=== PATIENT | male | born 1960 | race African-American/Black ===

== ENCOUNTER 2017-05-16 08:26 | Emergency (ER) | payer OTHER ==
[~2017-05-16] VITALS: Ht 188 cm; Wt 95.2 kg
[2017-05-16] MEDS ORDERED: NAPROSYN500 MG PO (09:00)
[2017-10-11] MEDS ORDERED: PERCOCET 5-3251 EACH PO (12:55)
[2017-10-11] MEDS ORDERED: CIPRO500 MG PO (12:56)
== END 2017-05-16 09:39 | disposition home or self-care (01) ==
LOC: ED 08:26
DX: F17.200 Nicotine dependence, unspecified, uncomplicated (principal)
CPT/HCPCS: 29130; 73130; 99283

== ENCOUNTER 2017-10-05 12:42 | Emergency (ER) | payer OTHER ==
[~2017-10-05] VITALS: Ht 188 cm; Wt 95.2 kg
[~2017-10-05 12:42] MED LIST: NAPROSYN500 MG PO
[2017-10-05] MEDS ORDERED: NORCO 5-325 TA1 EACH PO (17:41)
[2017-10-05] MEDS ORDERED: FLOMAX0.4 MG PO (17:41)
[2017-10-11] MEDS ORDERED: PERCOCET 5-3251 EACH PO (12:55)
[2017-10-11] MEDS ORDERED: CIPRO500 MG PO (12:56)
== END 2017-10-05 17:56 | disposition home or self-care (01) ==
LOC: ED 12:42
PROC: BT40ZZZ Ultrasonography of Bladder (ICD-10-PCS; principal; 2017-10-05)
DX: N20.1 Calculus of ureter (principal); E86.0 Dehydration; F17.200 Nicotine dependence, unspecified, uncomplicated
CPT/HCPCS: 51798; 74176; 80053; 81001; 82565; 83690; 83874; 84520; 85025; 96361; 96374; 96375; 99284; J2405; J3010; J7030

== ENCOUNTER 2018-07-22 13:33 | Emergency (ER) | payer OTHER ==
[~2018-07-22] VITALS: Ht 188 cm; Wt 113.4 kg
[~2018-07-22 13:33] MED LIST changes: +CIPRO500 MG PO; +CYCLOBENZAPRINE5 MG PO; +FLOMAX0.4 MG PO; +NORCO 5-325 TA1 EACH PO; +PERCOCET 5-3251 EACH PO
--- OUTSIDE RECORDS SUMMARY | 2018-07-22 13:36 | XMS ---
PreManage Notification: LAINA FRIED Security Pediatric Clinical Nurse Specialist Events No recent Security Events currently on file CRITERIA MET - [facility] CARE PROVIDERS There are no care providers on record at this time. Kevin has no Care Guidelines for this patient. Patsy VISIT COUNT (12 MO.) 3 TRACY Márquez TOTAL 3 NOTE: Visits indicate total known visits. ED/C VISIT TRACKING (12 MO.) 07/22/2018 13:33 [facility] [place] TYPE: Emergency COMPLAINT: - FALL/BACK PAIN 02/23/2018 12:18 [facility] [place] TYPE: Emergency COMPLAINT: - FLANK PAIN DIAGNOSES: - Exposure to other specified factors, initial encounter - Unspecified abdominal pain - Strain of muscle and tendon of back wall of thorax, initial encounter - Nicotine dependence, unspecified, uncomplicated 10/05/2017 12:43 [facility] [place] TYPE: Emergency COMPLAINT: - ABD PAIN/BACK PAIN DIAGNOSES: - Nicotine dependence, unspecified, uncomplicated - Lower abdominal pain, unspecified - Dehydration - Calculus of ureter INPATIENT VISIT TRACKING (12 MO.) No inpatient visits to display in this time frame [id number]
[2018-07-22] MEDS ORDERED: BACLOFEN10 MG PO (14:11)
[2018-07-22] MEDS ORDERED: BACTRIM DS TAB1 EACH PO (14:11)
[2018-07-22] MEDS ORDERED: METHYLPREDNISOLO4 M1 PO (14:11)
[2018-07-22] MEDS ORDERED: NORCO 5-325 TA1 EACH PO (14:11)
== END 2018-07-22 14:47 | disposition home or self-care (01) ==
LOC: ED 13:33
DX: S39.012A Strain of muscle, fascia and tendon of lower back, initial encounter (principal); L02.415 Cutaneous abscess of right lower limb; F17.200 Nicotine dependence, unspecified, uncomplicated; Z87.442 Personal history of urinary calculi; W00.0XXA Fall on same level due to ice and snow, initial encounter
CPT/HCPCS: 96372; 99283-25; J1885

== ENCOUNTER 2019-01-19 07:08 | Emergency (ER) | payer OTHER ==
[~2019-01-19] VITALS: Ht 188 cm; Wt 113.4 kg
[~2019-01-19 07:08] MED LIST changes: +BACLOFEN10 MG PO; +BACTRIM DS TAB1 EACH PO; +METHYLPREDNISOLO4 M1 PO
--- OUTSIDE RECORDS SUMMARY | 2019-01-19 07:12 | XMS ---
PreManage Notification: LAINA FRIED Security Online Merchandising Manager Events No recent Security Events currently on file CRITERIA MET - [employer] CARE PROVIDERS REINA STEELE Physician Glaciologist 07/25/2018-Current PHONE: [phone] Kevin has no Care Guidelines for this patient. EPaul VISIT COUNT (12 MO.) 3 TRACY Márquez TOTAL 3 NOTE: Visits indicate total known visits. ED/UCC VISIT TRACKING (12 MO.) 01/19/2019 07:09 [facility] TYPE: Emergency COMPLAINT: - BACK PAIN 07/22/2018 13:33 [facility] [place] TYPE: Emergency COMPLAINT: - FALL/BACK PAIN DIAGNOSES: - Fall on same level due to ice and snow, initial encounter - Low back pain - Cutaneous abscess of right lower limb - Nicotine dependence, unspecified, uncomplicated - Strain of muscle, fascia and tendon of lower back, initial encounter - Personal history of urinary calculi 02/23/2018 12:18 [facility] [place] TYPE: Emergency COMPLAINT: - FLANK PAIN DIAGNOSES: - Exposure to other specified factors, initial encounter - Unspecified abdominal pain - Strain of muscle and tendon of back wall of thorax, initial encounter - Nicotine dependence, unspecified, uncomplicated INPATIENT VISIT TRACKING (12 MO.) No inpatient visits to display in this time frame [id number]
[2019-01-19] MEDS ORDERED: CYCLOBENZAPRINE10 MG PO (07:54)
[2019-01-19] MEDS ORDERED: INDOMETHACIN50 MG PO (07:54)
[2019-01-19] MEDS ORDERED: AMOXICILLIN500 MG PO (07:54)
[2019-01-19] MEDS ORDERED: NICOTINE PATCH1 EACH TD (08:13)
== END 2019-01-19 08:19 | disposition home or self-care (01) ==
LOC: ED 07:08
DX: M54.5 Low back pain (principal); K08.89 Other specified disorders of teeth and supporting structures; F17.200 Nicotine dependence, unspecified, uncomplicated; Z87.442 Personal history of urinary calculi
CPT/HCPCS: 99283; 99406

== ENCOUNTER 2019-03-09 17:43 | Emergency (ER) | payer OTHER ==
[~2019-03-09] VITALS: Ht 188 cm; Wt 113.4 kg
[~2019-03-09 17:43] MED LIST changes: +AMOXICILLIN500 MG PO; +CYCLOBENZAPRINE10 MG PO; +INDOMETHACIN50 MG PO; +NICOTINE PATCH1 EACH TD
--- OUTSIDE RECORDS SUMMARY | 2019-03-09 17:46 | XMS ---
PreManage Notification: LAINA FRIED Security Clay Caster Events No recent Security Events currently on file CRITERIA MET - [employer] CARE PROVIDERS REINA STEELE Physician Cryogenics Repairer 07/25/2018-Current PHONE: [phone] Kevin has no Care Guidelines for this patient. EPaul VISIT COUNT (12 MO.) 3 TRACY Márquez TOTAL 3 NOTE: Visits indicate total known visits. ED/UCC VISIT TRACKING (12 MO.) 03/09/2019 17:44 [facility] [place] TYPE: Emergency COMPLAINT: - BACK PAIN, NOSE BLEED 01/19/2019 07:09 [facility] [place] TYPE: Emergency COMPLAINT: - BACK PAIN DIAGNOSES: - Other specified disorders of teeth and supporting structures - Dorsalgia, unspecified - Low back pain - Personal history of urinary calculi - Nicotine dependence, unspecified, uncomplicated 07/22/2018 13:33 [facility] [place] TYPE: Emergency COMPLAINT: - FALL/BACK PAIN DIAGNOSES: - Fall on same level due to ice and snow, initial encounter - Low back pain - Cutaneous abscess of right lower limb - Nicotine dependence, unspecified, uncomplicated - Strain of muscle, fascia and tendon of lower back, init - Personal history of urinary calculi INPATIENT VISIT TRACKING (12 MO.) No inpatient visits to display in this time frame [id number]
[2019-03-09] MEDS ORDERED: DOXYCYCLINE HY100 MG PO (19:11)
[2019-03-09] MEDS ORDERED: CYCLOBENZAPRINE10 MG PO (19:11)
[2019-03-09] MEDS ORDERED: DICLOFENAC SODI75 MG PO (19:11)
[2019-03-09] MEDS ORDERED: OMEPRAZOLE20 MG PO (19:32)
== END 2019-03-09 19:35 | disposition home or self-care (01) ==
LOC: ED 17:43
DX: M54.5 Low back pain (principal); F17.200 Nicotine dependence, unspecified, uncomplicated
CPT/HCPCS: 99283

== ENCOUNTER 2019-06-26 07:46 | Emergency (ER) | payer OTHER ==
[~2019-06-26] VITALS: Ht 188 cm; Wt 99.8 kg
[~2019-06-26 07:46] MED LIST changes: +DICLOFENAC SODI75 MG PO; +DOXYCYCLINE HY100 MG PO; +OMEPRAZOLE20 MG PO
[2019-06-26] MEDS ORDERED: SUDAFED 12-HOU120 MG PO (08:24)
[2019-06-26] MEDS ORDERED: NORCO 5-325 TA1 EACH PO (08:24)
[2019-06-26] MEDS ORDERED: KEFLEX500 MG PO (08:24)
[2019-06-26] MEDS ORDERED: TESSALON PERLE100 MG PO (08:24)
== END 2019-06-26 08:38 | disposition home or self-care (01) ==
LOC: ED 07:46
DX: M54.5 Low back pain (principal); J06.9 Acute upper respiratory infection, unspecified; L73.9 Follicular disorder, unspecified; Z87.891 Personal history of nicotine dependence
CPT/HCPCS: 99283

== ENCOUNTER 2020-03-11 08:48 | Emergency (ER) | payer OTHER ==
[~2020-03-11] VITALS: Ht 188 cm; Wt 99.8 kg
[~2020-03-11 08:48] MED LIST changes: +KEFLEX500 MG PO; +SUDAFED 12-HOU120 MG PO; +TESSALON PERLE100 MG PO
== END 2020-03-11 10:16 | disposition home or self-care (01) ==
LOC: ED 08:48
DX: S39.012A Strain of muscle, fascia and tendon of lower back, initial encounter (principal); L84 Corns and callosities; X58.XXXA Exposure to other specified factors, initial encounter; F17.200 Nicotine dependence, unspecified, uncomplicated
CPT/HCPCS: 72100; 81001; 96372; 99283-25; J1885

== ENCOUNTER 2020-07-29 11:02 | Emergency (ER) | payer OTHER ==
[~2020-07-29] VITALS: Ht 188 cm; Wt 95.3 kg
[2020-07-29] MEDS ORDERED: PREDNISONE20 MG PO (12:43)
[2020-07-29] MEDS ORDERED: CYCLOBENZAPRINE10 MG PO (12:43)
== END 2020-07-29 12:56 | disposition home or self-care (01) ==
LOC: ED 11:02
DX: G89.29 Other chronic pain (principal); M54.5 Low back pain; L73.9 Follicular disorder, unspecified; B48.8 Other specified mycoses; F17.200 Nicotine dependence, unspecified, uncomplicated
CPT/HCPCS: 99283

== ENCOUNTER 2020-12-15 09:39 | Emergency (ER) | payer OTHER ==
[~2020-12-15] VITALS: Ht 188 cm; Wt 95.2 kg
[~2020-12-15 09:39] MED LIST changes: +PREDNISONE20 MG PO
[2020-12-15] MEDS ORDERED: METHOCARBAMOL500 MG PO (10:41)
[2020-12-15] MEDS ORDERED: PREDNISONE20 MG PO (10:41)
== END 2020-12-15 11:15 | disposition home or self-care (01) ==
LOC: ED 09:39
DX: M54.5 Low back pain (principal); G89.29 Other chronic pain; F17.200 Nicotine dependence, unspecified, uncomplicated
CPT/HCPCS: 99283; A9270; J7512

== ENCOUNTER 2021-01-06 23:36 | Emergency (ER) | payer OTHER ==
[~2021-01-06] VITALS: Ht 188 cm; Wt 95.2 kg
[~2021-01-06 23:36] MED LIST changes: +METHOCARBAMOL500 MG PO
--- OUTSIDE RECORDS SUMMARY | 2021-01-06 23:44 | XMS ---
PreManage Notification: LAINA FRIED Security Digital Strategist Senior Manager Events No recent Security Events currently on file CRITERIA MET - [facility] - 2 Visits in 30 Days CARE PROVIDERS REINA STEELE Physician Gerontology Aide 07/25/2018-Current PHONE: [phone] Kevin has no Care Guidelines for this patient. Patsy VISIT COUNT (12 MO.) 4 [facility] TOTAL 4 NOTE: Visits indicate total known visits. ED/C VISIT TRACKING (12 MO.) 01/06/2021 23:37 [facility] [place] TYPE: Emergency COMPLAINT: - DIZZINESS,BODY CHILLS 12/15/2020 09:39 [facility] [place] TYPE: Emergency COMPLAINT: - LOWER BACK PAIN DIAGNOSES: - Other chronic pain - Low back pain - Nicotine dependence, unspecified, uncomplicated 07/29/2020 11:03 [facility] [place] TYPE: Emergency COMPLAINT: - BACK PAIN, RIGHT FOOT PAIN DIAGNOSES: - Other specified mycoses - Low back pain - Other chronic pain - Nicotine dependence, unspecified, uncomplicated - Follicular disorder, unspecified 03/11/2020 08:[address] [facility] [place] TYPE: Emergency COMPLAINT: - BACK PAIN NON INJ, WOUND ON RIGHT FOOT DIAGNOSES: - Corns and callosities - Strain of muscle, fascia and tendon of lower back, initial encounter - Pain in right toe(s) - Exposure to other specified factors, initial encounter - Nicotine dependence, unspecified, uncomplicated INPATIENT VISIT TRACKING (12 MO.) No inpatient visits to display in this time frame [id number]
[2021-01-07] MEDS ORDERED: PROTONIX40 MG PO (01:15)
[2021-01-07] MEDS ORDERED: AUGMENTIN 875-1 EACH PO (01:15)
== END 2021-01-07 01:29 | disposition home or self-care (01) ==
LOC: ED 23:36
DX: H92.02 Otalgia, left ear (principal); R10.12 Left upper quadrant pain; R42 Dizziness and giddiness; F17.200 Nicotine dependence, unspecified, uncomplicated; Z79.52 Long term (current) use of systemic steroids
CPT/HCPCS: 70450; 80053; 81001; 83690; 83735; 85025; 99284-25